=== PATIENT | male | born 1940 | race Caucasian/White ===

== ENCOUNTER 2016-10-03 14:09 | Outpatient (CLI) | payer MEDICARE, OTHER | END 2016-10-03 14:10 | LOC: CARD 14:09 | PROVIDERS: ATTEND Internal Medicine Cardiovascular Disease | DX: I05.9 Rheumatic mitral valve disease, unspecified (principal) ==

== ENCOUNTER 2017-02-27 12:29 | Outpatient (CLI) | payer MEDICARE, OTHER | END 2017-02-27 12:39 | LOC: CARD 12:29 | PROVIDERS: ATTEND Internal Medicine Cardiovascular Disease | DX: I05.8 Other rheumatic mitral valve diseases (principal); I48.91 Unspecified atrial fibrillation; I25.810 Atherosclerosis of coronary artery bypass graft(s) without angina pectoris; I10 Essential (primary) hypertension; G47.30 Sleep apnea, unspecified; E78.5 Hyperlipidemia, unspecified | CPT/HCPCS: G0463 ==